=== PATIENT | female | born 1950 | race Caucasian/White ===

== ENCOUNTER 2021-06-16 10:06 | Outpatient (REF) | payer MEDICARE, SELFPAY ==
[2021-06-16 11:44] LABS: COVID-19 Test Negative (Negative); IDNOW Serial# 16C4AD1C
== END 2021-06-16 10:07 | disposition home or self-care (01) ==
LOC: HO.LAB 10:06
PROVIDERS: Visit Provider Internal Medicine
DX: Z20.822 Contact with and (suspected) exposure to COVID-19 (principal)
CPT/HCPCS: 36415; 87635; C9803

== ENCOUNTER 2024-03-03 08:51 | Day surgery (SDC) | payer MEDICARE, SELFPAY ==
--- NOTE | 2024-02-28 13:58 | P.CONAN_ITS ---
Documented by User: Alayna Jackson NP 02/28/24 13:58 HPI - Anesthesia Eval Consult details Narrative: 73yo F for Right Cataract Extraction IOL Insertion No previous cataract on record PMFSH Past Medical History Medical History Ulcerative colitis TIA (transient ischemic attack) Migraines Lichen sclerosus Hyperlipidemia Herniated cervical disc Hepatitis C Left patella fracture Colon polyps Depression BCC (basal cell carcinoma of skin) Arthritis CKD (chronic kidney disease) stage 3, GFR 30-59 ml/min Back pain RLS (restless legs syndrome) Prediabetes HTN (hypertension) Sleep apnea Surgical History Surgical History Hx of knee surgery History of esophagogastroduodenoscopy (EGD) H/O colonoscopy Hx of breast biopsy Hx of cholecystectomy Hx of biopsy Hx of bilateral oophorectomy Social History Social History Are you a primary healthcare recruiter to a significant other at home: Yes Do you presently have visiting nurse or other home services: No Patient Tobacco Use Status: Former Tobacco user Use of substances other than those prescribed or required for medical reasons: Yes Substance Use Frequency: Occasionally Are you DNR?: No Advance Directives: No Advance Directives Information Provided: No Advance Directives on File: No Recently lost weight without trying: No Eating poorly because of decreased appetite: No Nutrition Risks: No Nutritional Risk Patient : No : No Meds Allergies Allergy/AdvReac Type Severity Reaction Status Date / Time dulaglutide [From [facility]] Allergy Vomiting Verified 02/27/24 11:49 morphine Allergy Unknown Verified 02/27/24 11:49 sulfanilamide Allergy Unknown Verified 02/27/24 11:49 Home Medications ?Medication ?Instructions ?Recorded ?Confirmed ?Last Taken ?Type atorvastatin 40 mg tablet 40 mg PO DAILY 02/27/24 02/27/24 Unknown History cetirizine 5 mg-pseudoephedrine ER 1 tab PO DAILY 02/27/24 02/27/24 Unknown History 120 mg tablet,extended release,12hr (Zyrtec-D) cholestyramine (with sugar) 4 gram 4 g PO BID 02/27/24 02/27/24 Unknown History oral powder fluoxetine 20 mg capsule 60 mg PO DAILY 02/27/24 02/27/24 Unknown History geriatric ivczyjsi-gjtp-hhky 1 tab PO DAILY 02/27/24 02/27/24 Unknown History hydrochlorothiazide 25 mg tablet 25 mg PO DAILY 02/27/24 02/27/24 Unknown History ibuprofen 200 mg tablet 200 mg PO Q6H PRN Pain 02/27/24 02/27/24 Unknown History loperamide 2 mg capsule 2 mg PO QID PRN Diarrhea 02/27/24 02/27/24 Unknown History lorazepam 1 mg tablet 1 mg PO BID PRN Anxiety 02/27/24 02/27/24 Unknown History oxycodone 5 mg tablet 5 mg PO BID PRN Pain 02/27/24 02/27/24 Unknown History Exam Height,Weight and Vital Signs: Weight 106.141 kg Assessment and Plan Assessment Anesthesia Assessment: Chart Reviewed Documented by User: Lina Pierson MD 03/03/24 13:15 PMFSH Past Medical History Medical History Ulcerative colitis TIA (transient ischemic attack) Migraines Lichen sclerosus Hyperlipidemia Herniated cervical disc Hepatitis C Left patella fracture Colon polyps Depression BCC (basal cell carcinoma of skin) Arthritis CKD (chronic kidney disease) stage 3, GFR 30-59 ml/min Back pain RLS (restless legs syndrome) Prediabetes HTN (hypertension) Sleep apnea Surgical History Surgical History Hx of knee surgery History of esophagogastroduodenoscopy (EGD) H/O colonoscopy Hx of breast biopsy Hx of cholecystectomy Hx of biopsy Hx of bilateral oophorectomy History of Problems with Anesthesia: No Social History Social History Are you a primary healthcare recruiter to a significant other at home: Yes Do you presently have visiting nurse or other home services: No Patient Tobacco Use Status: Former Tobacco user Use of substances other than those prescribed or required for medical reasons: Yes Substance Use Frequency: Occasionally Are you DNR?: No Advance Directives: No Advance Directives Information Provided: No Advance Directives on File: No Recently lost weight without trying: No Eating poorly because of decreased appetite: No Nutrition Risks: No Nutritional Risk Patient : No : No Meds Allergies Allergy/AdvReac Type Severity Reaction Status Date / Time dulaglutide [From Tr[facility]] Allergy Vomiting Verified 02/27/24 11:49 morphine Allergy Unknown Verified 02/27/24 11:49 sulfanilamide Allergy Unknown Verified 02/27/24 11:49 Home Medications ?Medication ?Instructions ?Recorded ?Confirmed ?Last Taken ?Type atorvastatin 40 mg tablet 40 mg PO DAILY 02/27/24 02/27/24 Unknown History cetirizine 5 mg-pseudoephedrine ER 1 tab PO DAILY 02/27/24 02/27/24 Unknown History 120 mg tablet,extended release,12hr (Zyrtec-D) cholestyramine (with sugar) 4 gram 4 g PO BID 02/27/24 02/27/24 Unknown History oral powder fluoxetine 20 mg capsule 60 mg PO DAILY 02/27/24 02/27/24 Unknown History geriatric xqflftxl-mssn-ixcg 1 tab PO DAILY 02/27/24 02/27/24 Unknown History hydrochlorothiazide 25 mg tablet 25 mg PO DAILY 02/27/24 02/27/24 Unknown History ibuprofen 200 mg tablet 200 mg PO Q6H PRN Pain 02/27/24 02/27/24 Unknown History loperamide 2 mg capsule 2 mg PO QID PRN Diarrhea 02/27/24 02/27/24 Unknown History lorazepam 1 mg tablet 1 mg PO BID PRN Anxiety 02/27/24 02/27/24 Unknown History oxycodone 5 mg tablet 5 mg PO BID PRN Pain 02/27/24 02/27/24 Unknown History Exam Airway Mallampati Class: III TM Dist: >3cm Neck ROM: Full Loose/Missing/Broken Teeth: No Heart: RRR Lungs: CTA Assessment and Plan Assessment Anesthesia Assessment: Anesthesia Plan Discussed Final Anesthetic Review History of Problems with Anesthesia: No NPO: Yes ASA Class: III Final Preanesthetic Review: Meds/Allgs Chart Reviewed, Consent Obtained/Reviewed and Anes Risks/Benef Reviewed Patient Risk: Intermediate Procedure Risk: Low Anesthetic Plan Anesthetic Plan: MAC: Disposition: Standard PACU
[2024-03-03] MEDS: Tetracaine HCl/PF 0.5% Oph Sol 4 ML DROPS 1 DROP EYE-RIGHT (12:37)
[2024-03-03] MEDS: Cyclopentolate 1 % Ophth Sol 2 ML DRPBTL 1 DROP EYE-RIGHT ×3 (12:38→12:54)
[2024-03-03] MEDS: Tropicamide 1 % Ophth Sol 3 ML BTL 1 DROP EYE-RIGHT ×3 (12:40→12:56)
[2024-03-03] MEDS: Ketorolac Tromethamine 0.5% Op 10 ML DROPS 1 DROP EYE-RIGHT ×3 (12:42→12:58)
[2024-03-03] MEDS: Phenylephrine HCL 2.5% Oph SoL 2 ML BOTTLE 1 DROP EYE-RIGHT ×3 (12:44→13:00)
[2024-03-03 12:48] VITALS: BP 154/65; PULSE 65; RESP 16; TEMP 35.8; O2SAT 98
[2024-03-03] MEDS: Lactated Ringers 500 ML 50 ML IV (12:52)
--- NOTE | 2024-03-03 13:43 | MHC.SHP ---
Pre-Procedural Eval Section A - 24 Hr Update-Section A only Date of Service: 03/03/24 The patient is an INPATIENT: No Changes since office visit: No Cold of Flu in the past 2 weeks, No New Medical Problems, No Changes in Medication and No Patient answered all questions The patient has been examined within 24 hours of the surgical procedure. The History & Physical has been completed within 30 days and I have reviewed it.: Yes Section B - Complete if H&P > 30 days Chief Complaint: Age-related nuclear cataract, right eye Allergies: Allergies Allergy/AdvReac Type Severity Reaction Status Date / Time dulaglutide [From [facility]] Allergy Vomiting Verified 03/03/24 13:15 morphine Allergy Unknown Verified 03/03/24 13:15 sulfanilamide Allergy Unknown Verified 03/03/24 13:15 Plan Diagnosis/Plan: Unchanged I have reviewed the history and physical and performed a pertinent physical examination on my patient. No changes have occurred unless specified. Time Spent With Patient Time: Total time managing care of this patient today ____ minutes.
--- NOTE | 2024-03-03 13:44 | P.PCNO_ITS ---
Ophthalmology Procedure Procedure Date of Service: 03/03/24 Ophthalmology Viscoelastic: Healon Duet Dual Pack Pro Ophthalmology Lenses: IOL Acrysof MP - MA60AC (25.5) Procedure Notes: PREOPERATIVE DIAGNOSIS: Decreased visual acuity right eye secondary to cataract POSTOPERATIVE DIAGNOSIS: Same PROCEDURE: Right cataract extraction with intraocular lens insertion SURGEON: Rojas Ch M.D. ANESTHESIA: Topical/MAC ESTIMATED BLOOD LOSS: None COMPLICATIONS: None After obtaining informed consent, the patient was brought to the operating room suite and placed in the supine position. After adequate sedation per anesthesia, topical drops of Tetracaine were given to the right eye. The eye was then prepped and draped in the usual sterile fashion. The operating room microscope was then positioned over the operative eye and a lid speculum placed. A paracentesis was created. Viscoelastic was then instilled into the anterior chamber. A three plane incision was then created temporally, utilizing a 2.85 mm keratome. Capsulotomy forceps were then utilized to create a circular tear capsulotomy. Hydrodissection and hydrodelineation were carried out until adequate mobilization of the nucleus occurred. Phacoemulsification was then utilized to remove the dense central nu cleus followed by removal of the cortical material utilizing the automated aspiration irrigation unit. Viscoelastic was instilled into the posterior capsular bag followed by placement of a posterior chamber intraocular lens without difficulty. The residual Viscoelastic was then removed utilizing the automated IA machine. The wound was checked and found to be watertight. The patient tolerated the procedure well and the lid speculum was removed. Intracameral injection of Vigamox 0.1 mL followed by a subtenon injection of Kenalog-40 0.2 mL were administered. The patient will be seen in the a.m.
[2024-03-03 14:22] VITALS: BP 121/55; PULSE 58; RESP 16; TEMP 36.1; O2SAT 98
== END 2024-03-03 14:24 | disposition home or self-care (01) ==
PROVIDERS: PCP Nurse Practitioner Family; Visit Provider Ophthalmology
PROC: (CPT 66985; principal; 2024-03-03 11:20)
DX: H25.11 Age-related nuclear cataract, right eye (principal); H52.4 Presbyopia; Z83.511 Family history of glaucoma; H40.213 Acute angle-closure glaucoma, bilateral; H18.413 Arcus senilis, bilateral; I12.9 Hypertensive chronic kidney disease with stage 1 through stage 4 chronic kidney disease, or unspecified chronic kidney disease; N18.31 Chronic kidney disease, stage 3a; R73.03 Prediabetes; G47.33 Obstructive sleep apnea (adult) (pediatric); Z99.89 Dependence on other enabling machines and devices; Z79.51 Long term (current) use of inhaled steroids; Z79.1 Long term (current) use of non-steroidal anti-inflammatories (NSAID); Z79.899 Other long term (current) drug therapy; Z88.2 Allergy status to sulfonamides; Z88.5 Allergy status to narcotic agent; Z87.891 Personal history of nicotine dependence
CPT/HCPCS: 66984; J2250; J3010; J3301; V2630

== ENCOUNTER 2024-03-17 08:41 | Day surgery (SDC) | payer MEDICARE, SELFPAY ==
--- NOTE | 2024-03-13 13:11 | P.CONAN_ITS ---
Documented by User: Alayna Jackson NP 03/13/24 13:12 HPI - Anesthesia Eval Consult details Narrative: 73yo F for Left Cataract Extraction IOL Insertion Right cataract 03/03/24: Fent 49, Midaz 2 PMFSH Past Medical History Medical History Ulcerative colitis TIA (transient ischemic attack) Migraines Lichen sclerosus Hyperlipidemia Herniated cervical disc Hepatitis C Left patella fracture Colon polyps Depression BCC (basal cell carcinoma of skin) Arthritis CKD (chronic kidney disease) stage 3, GFR 30-59 ml/min Back pain RLS (restless legs syndrome) Prediabetes HTN (hypertension) Sleep apnea Surgical History Surgical History Hx of knee surgery History of esophagogastroduodenoscopy (EGD) H/O colonoscopy Hx of breast biopsy Hx of cholecystectomy Hx of biopsy Hx of bilateral oophorectomy History of Problems with Anesthesia: No Social History Social History Are you a primary client care consultant to a significant other at home: Yes Do you presently have visiting nurse or other home services: No Patient Tobacco Use Status: Former Tobacco user Use of substances other than those prescribed or required for medical reasons: Yes Substance Use Frequency: Occasionally Are you DNR?: No Advance Directives: No Advance Directives Information Provided: Yes Advance Directives on File: No Recently lost weight without trying: No Eating poorly because of decreased appetite: No Nutrition Risks: No Nutritional Risk Patient : No : No Meds Allergies Allergy/AdvReac Type Severity Reaction Status Date / Time [facility] Allergy Vomiting Verified 03/17/24 09:45 morphine Allergy Unknown Verified 03/17/24 09:45 sulfanilamide Allergy Unknown Verified 03/17/24 09:45 Home Medications ?Medication ?Instructions ?Recorded ?Confirmed ?Last Taken ?Type atorvastatin 40 mg tablet 40 mg PO DAILY 02/27/24 02/27/24 Unknown History cetirizine 5 mg-pseudoephedrine ER 1 tab PO DAILY 02/27/24 03/03/24 03/02/24 History 120 mg tablet,extended release,12hr (Zyrtec-D) cholestyramine (with sugar) 4 gram 4 g PO BID 02/27/24 03/03/24 03/02/24 History oral powder fluoxetine 20 mg capsule 60 mg PO DAILY 02/27/24 03/03/24 03/02/24 History geriatric patbzjhg-xlkr-jptg 1 tab PO DAILY 02/27/24 03/03/24 03/02/24 History hydrochlorothiazide 25 mg tablet 25 mg PO DAILY 02/27/24 03/03/24 03/02/24 History ibuprofen 200 mg tablet 200 mg PO Q6H PRN Pain 02/27/24 02/27/24 Unknown History loperamide 2 mg capsule 2 mg PO QID PRN Diarrhea 02/27/24 02/27/24 Unknown History lorazepam 1 mg tablet 1 mg PO BID PRN Anxiety 02/27/24 02/27/24 Unknown History oxycodone 5 mg tablet 5 mg PO BID PRN Pain 02/27/24 02/27/24 Unknown History Exam Height,Weight and Vital Signs: Weight 106.141 kg Assessment and Plan Assessment Anesthesia Assessment: Chart Reviewed Final Anesthetic Review History of Problems with Anesthesia: No Documented by User: Eliz Lee MD 03/17/24 10:52 PMFSH Past Medical History Medical History Ulcerative colitis TIA (transient ischemic attack) Migraines Lichen sclerosus Hyperlipidemia Herniated cervical disc Hepatitis C Left patella fracture Colon polyps Depression BCC (basal cell carcinoma of skin) Arthritis CKD (chronic kidney disease) stage 3, GFR 30-59 ml/min Back pain RLS (restless legs syndrome) Prediabetes HTN (hypertension) Sleep apnea Family History Family history of problems with anesthesia: No Surgical History Surgical History Hx of knee surgery History of esophagogastroduodenoscopy (EGD) H/O colonoscopy Hx of breast biopsy Hx of cholecystectomy Hx of biopsy Hx of bilateral oophorectomy Social History Social History Are you a primary client care consultant to a significant other at home: Yes Do you presently have visiting nurse or other home services: No Patient Tobacco Use Status: Former Tobacco user Use of substances other than those prescribed or required for medical reasons: Yes Substance Use Frequency: Occasionally Are you DNR?: No Advance Directives: No Advance Directives Information Provided: Yes Advance Directives on File: No Recently lost weight without trying: No Eating poorly because of decreased appetite: No Nutrition Risks: No Nutritional Risk Patient : No : No Meds Allergies Allergy/AdvReac Type Severity Reaction Status Date / Time [facility] Allergy Vomiting Verified 03/17/24 09:45 morphine Allergy Unknown Verified 03/17/24 09:45 sulfanilamide Allergy Unknown Verified 03/17/24 09:45 Home Medications ?Medication ?Instructions ?Recorded ?Confirmed ?Last Taken ?Type atorvastatin 40 mg tablet 40 mg PO DAILY 02/27/24 02/27/24 Unknown History cetirizine 5 mg-pseudoephedrine ER 1 tab PO DAILY 02/27/24 03/03/24 03/02/24 History 120 mg tablet,extended release,12hr (Zyrtec-D) cholestyramine (with sugar) 4 gram 4 g PO BID 02/27/24 03/03/24 03/02/24 History oral powder fluoxetine 20 mg capsule 60 mg PO DAILY 02/27/24 03/03/24 03/02/24 History geriatric ngolyrss-hjxn-thky 1 tab PO DAILY 02/27/24 03/03/24 03/02/24 History hydrochlorothiazide 25 mg tablet 25 mg PO DAILY 02/27/24 03/03/24 03/02/24 History ibuprofen 200 mg tablet 200 mg PO Q6H PRN Pain 02/27/24 02/27/24 Unknown History loperamide 2 mg capsule 2 mg PO QID PRN Diarrhea 02/27/24 02/27/24 Unknown History lorazepam 1 mg tablet 1 mg PO BID PRN Anxiety 02/27/24 02/27/24 Unknown History oxycodone 5 mg tablet 5 mg PO BID PRN Pain 02/27/24 02/27/24 Unknown History Exam Airway Mallampati Class: II TM Dist: >3cm Neck ROM: Full Heart: rrr Lungs: cta Assessment and Plan Assessment Anesthesia Assessment: Anesthesia Plan Discussed Final Anesthetic Review Family History of Problems with Anesthesia: No NPO: Yes ASA Class: II Final Preanesthetic Review: No Changes in Pt Med Stat, Meds/Allgs Chart Reviewed, Consent Obtained/Reviewed and Anes Risks/Benef Reviewed Patient Risk: Low Procedure Risk: Low Anesthetic Plan Anesthetic Plan: MAC: Disposition: Standard PACU
[2024-03-14 09:08] VITALS: BMI 36.0
[2024-03-17 09:47] VITALS: BP 132/62; PULSE 69; RESP 12; TEMP 36.2; O2SAT 96
[2024-03-17] MEDS: Tetracaine HCl/PF 0.5% Oph Sol 4 ML DROPS 1 DROP EYE-LEFT (10:00)
[2024-03-17] MEDS: Cyclopentolate 1 % Ophth Sol 2 ML DRPBTL 1 DROP EYE-LEFT ×3 (10:02→10:09)
[2024-03-17] MEDS: Tropicamide 1 % Ophth Sol 3 ML BTL 1 DROP EYE-LEFT ×3 (10:03→10:10)
[2024-03-17] MEDS: Ketorolac Tromethamine 0.5% Op 10 ML DROPS 1 DROP EYE-LEFT ×3 (10:04→10:11)
[2024-03-17] MEDS: Phenylephrine HCL 2.5% Oph SoL 2 ML BOTTLE 1 DROP EYE-LEFT ×3 (10:05→10:12)
[2024-03-17] MEDS: Lactated Ringers 500 ML 50 ML IV (10:24)
--- NOTE | 2024-03-17 10:44 | MHC.SHP ---
Pre-Procedural Eval Section A - 24 Hr Update-Section A only Date of Service: 03/17/24 The patient is an INPATIENT: No Changes since office visit: No Cold of Flu in the past 2 weeks, No New Medical Problems, No Changes in Medication and No Patient answered all questions The patient has been examined within 24 hours of the surgical procedure. The History & Physical has been completed within 30 days and I have reviewed it.: Yes Section B - Complete if H&P > 30 days Chief Complaint: Age-related nuclear cataract, left eye Allergies: Allergies Allergy/AdvReac Type Severity Reaction Status Date / Time dulaglutide [From Trul[facility]] Allergy Vomiting Verified 03/17/24 09:45 morphine Allergy Unknown Verified 03/17/24 09:45 sulfanilamide Allergy Unknown Verified 03/17/24 09:45 Plan Diagnosis/Plan: Unchanged I have reviewed the history and physical and performed a pertinent physical examination on my patient. No changes have occurred unless specified. Time Spent With Patient Time: Total time managing care of this patient today ____ minutes.
--- NOTE | 2024-03-17 10:45 | HO.PNOPHT ---
Ophthalmology Procedure Procedure Date of Service: 03/17/24 Ophthalmology Viscoelastic: Healon Duet Dual Pack Pro Ophthalmology Lenses: IOL Acrysof MP - MA60AC (25) Procedure Notes: PREOPERATIVE DIAGNOSIS: Decreased visual acuity left eye secondary to cataract POSTOPERATIVE DIAGNOSIS: Same PROCEDURE: Left cataract extraction with intraocular lens insertion SURGEON: Rojas Ch M.D. ANESTHESIA: Topical/MAC ESTIMATED BLOOD LOSS: None COMPLICATIONS: None After obtaining informed consent, the patient was brought to the operation room suite and placed in the supine position. After adequate sedation per anesthesia, topical drops of Tetracaine were given to the left eye. The eye was then prepped and draped in the usual sterile fashion. The operating room microscope was then positioned over the operative eye and a lid speculum placed. A paracentesis was created. Viscoelastic was then instilled into the anterior chamber. A three plane incision was then created temporally, utilizing a 2.85 mm keratome. Capsulotomy forceps were then utilized to create a circular tear capsulotomy. Hydrodissection and hydrodelineation were carried out until adequate mobilization of the nucleus occurred. Phacoemulsification was then utilized to remove the dense central nucleus followed by removal of the cortical material utilizing the automated aspiration irrigation unit. Viscoat elastic was instilled into the posterior capsular bag followed by placement of a posterior chamber intraocular lens without difficulty. The residual Viscoat elastic was then removed utilizing the automated IA machine. The wound was check and found to be watertight. The patient tolerated the procedure well and the lid speculum was removed. Intracameral injection of Vigamox 0.1 mL followed by a subtenon injection of Kenalog-40 0.2 mL were administered. The patient will be seen in the a.m.
[2024-03-17 11:35] VITALS: BP 134/56; PULSE 58; RESP 18; TEMP 36.6; O2SAT 99
== END 2024-03-17 11:38 | disposition home or self-care (01) ==
PROVIDERS: PCP Nurse Practitioner Family; Visit Provider Ophthalmology
PROC: (CPT 66985; principal; 2024-03-17 11:00)
DX: H25.12 Age-related nuclear cataract, left eye (principal); H52.4 Presbyopia; H40.213 Acute angle-closure glaucoma, bilateral; H18.413 Arcus senilis, bilateral; Z83.511 Family history of glaucoma; Z83.518 Family history of other specified eye disorder; I10 Essential (primary) hypertension; G47.33 Obstructive sleep apnea (adult) (pediatric); F32.A Depression, unspecified; Z79.1 Long term (current) use of non-steroidal anti-inflammatories (NSAID); Z88.2 Allergy status to sulfonamides; Z88.5 Allergy status to narcotic agent; Z87.891 Personal history of nicotine dependence; Z79.899 Other long term (current) drug therapy
CPT/HCPCS: 66984; J2250; J3301; V2630